=== PATIENT | female | born 2000 | race Caucasian/White ===

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

== ENCOUNTER 2022-12-21 09:45 | Outpatient (CLI) | payer OTHER | END 2022-12-21 09:46 | disposition home or self-care (01) | LOC: ULT 09:45 | PROVIDERS: ATTEND Nurse Practitioner Family | DX: R10.31 Right lower quadrant pain (principal) | CPT/HCPCS: 76700; 76856; 93976 ==

== ENCOUNTER 2023-02-12 15:49 | Outpatient (CLI) | payer OTHER | END 2023-02-12 15:50 | disposition home or self-care (01) | LOC: BICRAD 15:49 | PROVIDERS: ATTEND Nurse Practitioner Family | DX: S89.92XA Unspecified injury of left lower leg, initial encounter (principal); M25.562 Pain in left knee ==

== ENCOUNTER 2025-07-23 09:06 | Outpatient (CLI) | payer OTHER | END 2025-07-23 09:07 | disposition home or self-care (01) | LOC: BICRAD 09:06 | PROVIDERS: ATTEND Internal Medicine | DX: M54.16 Radiculopathy, lumbar region (principal); M41.9 Scoliosis, unspecified | CPT/HCPCS: 72081; 72100 ==